=== PATIENT | female | born 1970 | race Caucasian/White ===

== ENCOUNTER 2017-12-18 21:53 | Emergency (ER) | payer BC ==
[~2017-12-18] VITALS: Ht 172.7 cm; Wt 84.0 kg
[2017-12-18] MEDS ORDERED: KEFLEX500 MG PO (23:47)
[2017-12-19 00:01] VITALS: BP 138/76
[2017-12-19] MEDS ORDERED: PERCOCET 5/31 TABLET PO (00:03)
== END 2017-12-19 00:09 | disposition home or self-care (01) ==
LOC: EME 21:53
PROC: 0H9GXZZ Drainage of Left Hand Skin, External Approach (ICD-10-PCS; principal; 2017-12-18)
DX: L03.012 Cellulitis of left finger (principal); L02.512 Cutaneous abscess of left hand; F17.200 Nicotine dependence, unspecified, uncomplicated
CPT/HCPCS: 99281; 99284

== ENCOUNTER 2017-12-21 18:13 | Emergency (ER) | payer BC ==
[~2017-12-21] VITALS: Ht 172.7 cm; Wt 84.4 kg
[~2017-12-21 18:13] MED LIST: KEFLEX500 MG PO; PERCOCET 5/31 TABLET PO
[2017-12-21 19:38] LABS: HEMATOCRIT 37.7 % (36.0-46.0); HEMOGLOBIN 12.6 G/DL (11.9-15.5); MCH 29.9 PG (29.0-34.0); MCHC 33.4 G/DL (30.0-36.0); MCV 89.5 FL (83-99); PLATELET COUNT 336 K/uL (156-360); RBC DIS.WIDTH-CV 12.8 % (11.8-14.6); RED BLOOD COUNT 4.21 M/uL (3.80-5.20); WHITE BLOOD COUNT 9.5 K/uL (4.1-10.2)
[2017-12-21 19:49] LABS: CHLORIDE 109 mEq/L (99-109); POTASSIUM 4.4 mEq/L (3.7-5.4); SODIUM 137 mEq/L (136-147)
[2017-12-21 19:51] LABS: GLUCOSE 90 mg/dL (70-99)
[2017-12-21 19:54] LABS: GFR ESTIMATE (CALCULATED) > 59 mL/min/
[2017-12-21 19:55] LABS: UREA NITROGEN (BUN) 13 mg/dL (9-23)
[2017-12-22 00:47] VITALS: BP 133/78
[2017-12-22] MEDS ORDERED: MIRAPEX0.5 MG PO (20:17)
[2017-12-23] MEDS ORDERED: TYLENOL325 M2 PO (07:35)
[2017-12-23] MEDS ORDERED: PERCOCET 5/31 TABLET PO (07:36)
[2017-12-23] MEDS ORDERED: MOTRIN800 MG PO (07:36)
== END 2017-12-22 00:48 | disposition home or self-care (01) ==
LOC: EME 18:13
PROVIDERS: Nurse Practitioner Family
PROC: 0H9GXZZ Drainage of Left Hand Skin, External Approach (ICD-10-PCS; principal; 2017-12-21)
DX: L02.512 Cutaneous abscess of left hand (principal); F17.200 Nicotine dependence, unspecified, uncomplicated
CPT/HCPCS: 73200; 80048; 83605; 85027; 87040; 87070; 87075; 87077; 87147; 87186; 87205; 99281; 99284; J3010; J3370; J7030